=== PATIENT | female | born 1975 | race Caucasian/White ===

== ENCOUNTER 2020-07-13 18:02 | Emergency (ER) | payer OTHER ==
[~2020-07-13] VITALS: Ht 157.5 cm; Wt 86.6 kg
[~2020-07-13 18:02] MED LIST: KEFLEX500 MG PO
[2020-07-13 18:09] VITALS: Ht 157.5 cm; Wt 86.6 kg
[2020-07-13 21:05] LABS: BASOPHIL % 0.7 % (0-2); PLATELET COUNT 243 x10^3mcL (130-400); RED CELL DISTRIBUTION WIDTH 13.1 % (11.5-14.5)
[2020-07-13 21:29] LABS: CALCIUM 9.2 mg/dL (8.5-10.1); CARBON DIOXIDE 27.3 mmol/L (21-32); CREATININE SERUM 1.2 mg/dL (0.6-1.0); POTASSIUM SERUM 3.9 mmol/L (3.5-5.1)
[2020-07-13 21:34] LABS: ALBUMIN 3.4 g/dL (3.4-5.0); BILIRUBIN TOTAL 0.3 mg/dL (0.20-1.00); TOTAL PROTEIN, SERUM 7.3 g/dL (6.4-8.2)
[2020-07-13 23:33] LABS: UA SPECIFIC GRAVITY 1.015 (1.005-1.035); microscopic required? YES; urine erythrocyte NEGATIVE (NEGATIVE)
[2020-07-14 01:34] VITALS: BP 131/72
== END 2020-07-14 01:31 | disposition home or self-care (01) ==
LOC: ED 18:02
PROVIDERS: Emergency Medicine
DX: N12 Tubulo-interstitial nephritis, not specified as acute or chronic (principal)
CPT/HCPCS: J0696; J1885; J2405; J3010; J7030

== ENCOUNTER 2020-08-11 06:08 | Day surgery (SDC) | payer OTHER ==
[2020-08-06 15:07] LABS: BASOPHIL % 0.6 % (0-2); PLATELET COUNT 265 x10^3mcL (130-400); RED CELL DISTRIBUTION WIDTH 13.4 % (11.5-14.5)
[2020-08-06 15:12] LABS: ALBUMIN 3.8 g/dL (3.4-5.0); BILIRUBIN TOTAL 0.28 mg/dL (0.20-1.00); CALCIUM 8.8 mg/dL (8.5-10.1); CARBON DIOXIDE 30.3 mmol/L (21-32); CREATININE SERUM 1.1 mg/dL (0.6-1.0); TOTAL PROTEIN, SERUM 7.9 g/dL (6.4-8.2)
--- NOTE | 2020-08-09 11:13 | NUR ---
LAB TESTS, CXR AND EKG SENT OVER TO [facility] FOR REVIEW. [facility] FOR SURGERY FOR 08-11-[address] Narendra OBANDO
[~2020-08-11] VITALS: Ht 165.1 cm; Wt 88.9 kg
[2020-08-11 06:53] VITALS: BP 138/86
[2020-08-11 11:10] VITALS: BP 137/84
== END 2020-08-11 10:55 | disposition home or self-care (01) ==
LOC: DS 06:08 → OR 07:30 → DS 07:30
PROVIDERS: ATTEND Urology
DX: N13.2 Hydronephrosis with renal and ureteral calculous obstruction (principal); N28.9 Disorder of kidney and ureter, unspecified; N18.3 Chronic kidney disease, stage 3 (moderate); D64.9 Anemia, unspecified; Z20.828 Contact with and (suspected) exposure to other viral communicable diseases
CPT/HCPCS: C1758; C1769; C2625; J0696; J2405; J2704; J2710; J3010; J3490; J7030; J7120; Q0092; Q9967; U0003-CS